=== PATIENT | male | born 1980 | race Caucasian/White ===

== ENCOUNTER → 2020-12-31 11:01 | Outpatient (BNVA) | payer MEDICARE, MEDICAID, SELFPAY | PROVIDERS: PCP Nurse Practitioner Family; Visit Provider Psychiatry & Neurology Neurology | DX: Z13.89 Encounter for screening for other disorder (principal) | CPT/HCPCS: Q3014 ==

== ENCOUNTER 2021-01-15 11:05 | Outpatient (REF) | payer MEDICARE, MEDICAID, SELFPAY ==
--- NOTE | ~2021-01-15 | XR_ITS ---
EXAMINATION: XR HAND, RIGHT CLINICAL INFORMATION: Unspecified injury of right hand COMPARISON: None TECHNIQUE: PA, lateral, and oblique views of the right hand. FINDINGS: There is an obliquely oriented mildly displaced fracture through the distal aspect of the fifth distal phalanx. There is overlying soft tissue swelling. No radiopaque foreign body. No intra-articular extension. No dislocation. The remainder of the right hand is intact. XR/XR hand RT min 3V IMPRESSION: Obliquely oriented mildly displaced acute appearing fracture through the distal aspect of the fifth distal phalanx.
[2021-01-15 14:01] LABS: MANUAL DIFF FLAG NO
[2021-01-15 14:11] LABS: Basophils Absolute Auto 0.1 X10*3/uL (0.0-0.2); Basophils Percent Auto 0.9 % (0-2); Eosinophils Absolute Auto 0.1 X10*3/uL (0.0-0.4); Eosinophils Percent Auto 1.6 % (0-4); Hematocrit 45.2 % (42-52); Hemoglobin 15.1 g/dl (14.0-18.0); Imm Gran Abs Auto 0.01 X10*3/uL (0.00-0.03); Imm Gran Pct Auto 0.1 % (0.0-0.4); Lymphocytes Absolute Auto 2.1 X10*3/uL (1.2-4.9); Lymphocytes Percent Auto 31.7 % (20-40); Mean Corpuscular HGB Conc 33.4 g/dl (31.0-36.0); Mean Corpuscular Hemoglobin 28.2 pg (27.0-33.0); Mean Corpuscular Volume 84.5 fL (80-98); Monocytes Absolute Auto 0.4 X10*3/uL (0.1-1.2); Monocytes Percent Auto 5.5 % (2-11); Neutrophils Percent Auto 60.2 % (45-73); Platelet Count 314 X10*3/uL (160-400); Red Blood Count 5.35 X10*6/uL (4.60-5.80); Red Cell Distribution Width 13.9 % (11.0-16.0); White Blood Count 6.7 X10*3/uL (4.8-10.8)
[2021-01-15 14:45] LABS: Alanine Aminotransferase 16 U/L (0-40); Alkaline Phosphatase 72 U/L (39-117); Anion Gap 16 (12-20); Aspartate Amino Transferase 17 U/L (5-37); Bilirubin Total 0.5 mg/dL (0.0-1.0); Blood Urea Nitrogen 13 mg/dL (9-16); Calcium 10.1 mg/dL (8.4-10.2); Carbon Dioxide 27 mmol/L (22-29); Chloride 98 mmol/L (96-108); Cholesterol 237 mg/dL; Estimated Glomerular Filt Rate > 60; Glucose Fasting 103 mg/dL (60-99); HDL Cholesterol 64 mg/dL; Iron 139 mcg/dL (45-160); LDL Cholesterol Calculated 160 mg/dl; Percent Iron Saturation 33 % (15-50); Potassium 4.4 mmol/L (3.3-5.1); Sodium 137 mmol/L (135-145); Total Iron Binding Capacity 425 mcg/dL (228-428); Total Protein 8.2 g/dL (6.5-8.0); Triglycerides 69 mg/dL; Unsaturated Iron Binding 286 ug/dL
[2021-01-15 14:53] LABS: Ferritin 41 ng/mL (20-250); TSH reflex Free T4 1.98 uIU/mL (0.32-4.0)
[2021-01-16 05:26] LABS: Lyme Abs Screen <0.90 index
[2021-01-16 18:41] LABS: Vitamin B12 331 pg/mL (200-900)
[2021-01-19 08:57] LABS: Testosterone, Total 380 ng/dL (250-1100)
== END 2021-01-15 11:06 | disposition home or self-care (01) ==
LOC: HO.HMGCLDS 11:05
PROVIDERS: PCP Nurse Practitioner Family; Visit Provider Nurse Practitioner Family
DX: Z00.00 Encounter for general adult medical examination without abnormal findings (principal); R53.83 Other fatigue; S62.636A Displaced fracture of distal phalanx of right little finger, initial encounter for closed fracture; X58.XXXA Exposure to other specified factors, initial encounter; Y93.9 Activity, unspecified; Y92.9 Unspecified place or not applicable; Y99.8 Other external cause status
CPT/HCPCS: 36415; 73130; 80053; 80061; 82607; 82728; 83540; 84403; 84443; 85025; 86618

== ENCOUNTER 2021-01-20 09:51 | Outpatient (REF) | payer MEDICARE, MEDICAID, SELFPAY | END 2021-01-20 09:52 | disposition home or self-care (01) | LOC: HO.HOSX 09:51 | PROVIDERS: Visit Provider Orthopaedic Surgery | DX: Z13.89 Encounter for screening for other disorder (principal) ==

== ENCOUNTER → 2021-03-04 10:06 | Outpatient (BNVA) | payer MEDICARE, MEDICAID, SELFPAY | PROVIDERS: PCP Nurse Practitioner Family; Visit Provider Psychiatry & Neurology Neurology ==

== ENCOUNTER → 2021-04-15 11:28 | Outpatient (REF) | payer MEDICARE, MEDICAID, SELFPAY | LOC: HO.SL 11:28 | PROVIDERS: PCP Nurse Practitioner Family; Visit Provider Psychiatry & Neurology Neurology | DX: R06.83 Snoring (principal); R53.82 Chronic fatigue, unspecified; R06.81 Apnea, not elsewhere classified; G47.10 Hypersomnia, unspecified | CPT/HCPCS: 95806 ==

== ENCOUNTER → 2021-05-20 09:43 | Outpatient (BNVA) | payer MEDICARE, MEDICAID, SELFPAY | PROVIDERS: PCP Nurse Practitioner Family; Visit Provider Psychiatry & Neurology Neurology | CPT/HCPCS: Q3014 ==

== ENCOUNTER 2021-05-22 14:32 | Outpatient (REF) | payer MEDICARE, MEDICAID, SELFPAY ==
--- NOTE | ~2021-05-22 | US_ITS ---
EXAMINATION: US SCROTUM CLINICAL INFORMATION: Contusion of scrotum and testes. COMPARISON: None TECHNIQUE: A sonogram of the scrotum was performed assessing yu-scale appearance and color Doppler flow. Spectral Doppler analysis of the arterial and venous flow were performed in the testes bilaterally. FINDINGS: RIGHT: Right testicle measures 5.3 x 2.3 x 3.6 cm, volume 23 mL. No focal testicular parenchymal lesions are visualized. Punctate echogenic reflectors in the right testicle but they do not meet criteria for microlithiasis Spectral Doppler analysis of the arterial and venous flow is normal in the right testis. Right epididymal head is normal in size. No right hydrocele or varicocele is seen. Right epididymal Doppler flow is normal. LEFT: Left testicle measures 5.1 x 2.3 x 3.7 cm, volume 23 mL. No focal testicular parenchymal lesions are visualized. Spectral Doppler analysis of the arterial and venous flow is normal in the left testis. There is asymmetric skin thickening of the left scrotum, 6 mm on the left compared to 3 mm on the right. Adjacent to but separate from the left testicle, there is a region of heterogeneous asymmetric soft tissue prominence. There does appear to be internal vascularity which would not be expected for hematoma. No peristalsis seen. Left epididymal head is normal in size. No left hydrocele or varicocele is seen. Left epididymal Doppler flow is normal. US/US scrotum IMPRESSION: There is nonspecific asymmetric soft tissue in the left scrotum adjacent the left testicle. This is separate from the left testicle and does not appear to represent an intratesticular mass. This appears to be separate from the left epididymis, arguing against epididymitis. No peristalsis seen. Moreover there is internal vascularity which would not be expected for hematoma or fluid collection. This could represent a hernia with soft tissue including fat, possibly with inflammatory changes given the vascularity and skin thickening. Recommend correlation with physical exam. Consider urology consultation.
== END 2021-05-22 14:33 | disposition home or self-care (01) ==
LOC: HO.HMGCX 14:32
PROVIDERS: PCP Nurse Practitioner Family; Visit Provider Internal Medicine
DX: S30.22XA Contusion of scrotum and testes, initial encounter (principal)
CPT/HCPCS: 76870

== ENCOUNTER → 2021-08-05 10:10 | Outpatient (BNVA) | payer MEDICARE, MEDICAID, SELFPAY | PROVIDERS: PCP Nurse Practitioner Family; Visit Provider Psychiatry & Neurology Neurology ==

== ENCOUNTER 2021-09-05 16:48 | Outpatient (REF) | payer MEDICARE, MEDICAID, SELFPAY ==
--- NOTE | ~2021-09-05 | CT_ITS ---
EXAMINATION: CT SINUS WITHOUT CONTRAST CLINICAL INFORMATION: Sinus polyp. COMPARISON: None TECHNIQUE: 2 mm thin axial and reformatted 2 mm thin coronal and sagittal images of sinuses were obtained. This CT examination was performed using dose optimization techniques as appropriate, variously including the following: *Automated exposure control *Adjustment of mA and/or kV according to patient size (this includes techniques or standardized protocols for targeted exams where dose is matched to indication/reason for exam; i.e. extremities or head) *Use of iterative reconstruction technique DLP: 107 mGy-cm FINDINGS: FRONTAL SINUSES AND DRAINAGE PATHWAYS: There is mild mucosal thickening right frontal sinus. There is a partial obstruction from mild mucoperiosteal thickening right ostiomeatal complex. The left frontal sinus and the osteal metal complex is patent. MAXILLARY SINUSES AND DRAINAGE PATHWAYS: There is mild mucosal thickening right maxillary sinus with partial obliteration of bilateral ostiomeatal complex from mucosal thickening. The bony sinus christina are unremarkable. ETHMOID SINUSES: There is mucoperiosteal thickening of bilateral ethmoid sinuses. SPHENOID SINUSES AND DRAINAGE PATHWAYS: There is mild mucoperiosteal thickening and debris within the left sphenoid sinus. The right sphenoid sinus is smaller and appears unremarkable. NASAL CAVITY/NASOPHARYNX: The nasal cavity is clear. There is mild right nasal septal deviation/spurring. The nasopharynx is symmetric. ADDITIONAL RELEVANT FINDINGS: No periapical disease is seen. The TMJs articulate normally. The orbits and skull base soft tissues are unremarkable. The middle ear cavities and mastoid air cells are clear. Limited evaluation demonstrates no acute intracranial findings. CT/CT sinus wo con IMPRESSION: Right frontal, ethmoid and maxillary sinus inflammatory changes with mild obliteration of bilateral frontoethmoidal recess and right sphenoethmoidal drainage pathways from mucoperiosteal thickening. Mild deviation of nasal septum to the right.
== END 2021-09-05 16:49 | disposition home or self-care (01) ==
LOC: HO.CT 16:48
PROVIDERS: PCP Nurse Practitioner Family; Visit Provider Otolaryngology
DX: J33.8 Other polyp of sinus (principal); J34.2 Deviated nasal septum
CPT/HCPCS: 70486

== ENCOUNTER → 2021-09-15 14:35 | Outpatient (BNVA) | payer SELFPAY | PROVIDERS: PCP Nurse Practitioner Family; Visit Provider Physician Assistant Medical | DX: Z02.79 Encounter for issue of other medical certificate (principal) ==

== ENCOUNTER → 2021-09-16 10:49 | Outpatient (BNVA) | payer SELFPAY | PROVIDERS: PCP Nurse Practitioner Family; Referring Provider Nurse Practitioner Family; Visit Provider Psychiatry & Neurology Neurology ==